=== PATIENT | female | born 1960 | race Caucasian/White ===

== ENCOUNTER 2019-01-12 12:05 | Day surgery (SDC) | payer OTHER ==
[~2019-01-12 12:05] MED LIST: CEFAZOLIN 2 GM/50 ML (PMX) 50 ML IVPB
[2019-01-12] MEDS: LACTATED RINGER'S 1,000 ML IV (12:36)
[2019-01-12] MEDS ORDERED: HYDROmorphONE 1 MG/5 ML IV SYRINGE IV ×2 (13:00)
[2019-01-12] MEDS ORDERED: METOCLOPRAMIDE 10 MG INJ IV (13:00)
[2019-01-12] MEDS ORDERED: EPHEDrine 25 MG/5 ML SYG IV (13:00)
[2019-01-12] MEDS ORDERED: OXYCODONE/ACETAMINOPHEN (5/325) TAB PO (13:00)
[2019-01-12] MEDS ORDERED: FENTAnyl 50 MCG/ML VIAL IV ×2 (13:00)
[2019-01-12] MEDS ORDERED: LABETALOL HCL 20MG INJ IV (13:00)
[2019-01-12] MEDS ORDERED: ONDANSETRON 4 MG INJ IV (13:00)
[2019-01-12] MEDS ORDERED: MIDAZOLAM 1 MG/ML 2 ML INJ (13:26)
[2019-01-12] MEDS ORDERED: CEFAZOLIN 1 GM INJ (13:26)
[2019-01-12] MEDS ORDERED: FENTAnyl 50 MCG/ML VIAL (13:26)
[2019-01-12] MEDS ORDERED: ONDANSETRON 4 MG INJ (13:49)
[2019-01-12] MEDS ORDERED: PROPOFOL 20 ML (13:49)
[2019-01-12] MEDS ORDERED: METOCLOPRAMIDE 10 MG INJ (13:49)
[2019-01-12] MEDS ORDERED: DEXAMETHASONE 4 MG/ML 5 ML INJ (13:49)
[2019-01-12] MEDS ORDERED: KETOROLAC 30 MG INJ (13:49)
[2019-01-12] MEDS: BUPIVACAINE 0.25% (MPF) 30 ML INJ (13:59)
[2019-01-12] MEDS: LIDOCAINE 1% (MPF) 30 ML INJ (13:59)
[2019-01-12] MEDS: BACITRACIN/POLYMYXIN 28.35 GM OINT TOP (14:00)
== END 2019-01-12 15:06 | disposition home or self-care (01) ==
LOC: SDS 12:05
DX: M65.311 Trigger thumb, right thumb (principal)
CPT/HCPCS: 26055